=== PATIENT | male | born 1960 | race Caucasian/White ===

== ENCOUNTER → 2019-01-07 | Outpatient (CLI) | payer OTHER | END | disposition home or self-care (01) | LOC: CFH 13:46 | PROVIDERS: ATTEND Nurse Practitioner Primary Care | DX: K40.90 Unilateral inguinal hernia, without obstruction or gangrene, not specified as recurrent (principal) | CPT/HCPCS: 76857 ==

== ENCOUNTER 2020-06-04 15:39 | Emergency (ER) | payer BC, OTHER ==
[~2020-06-04] VITALS: Ht 177.8 cm; Wt 87.0 kg
[2020-06-04 15:54] VITALS: BP 145/78
[2020-06-04] MEDS ORDERED: DIPH,PERTUSS(ACELL),TET VAC/PF 0.5 ML IM-VACC ONE ×2 (16:00→16:27)
[2020-06-04] MEDS ORDERED: LIDOCAINE-MPF 1%, 5ML INFIL ONE (16:00)
--- NOTE | 2020-06-04 16:22 | NUR ---
TEXTILE SCREEN MAKER: PT TO ROOM FROM [facility]
[2020-06-04] MEDS ORDERED: LIDOCAINE-MPF 1%, 5ML ONE (16:26)
[2020-06-04] MEDS ORDERED: BUPIVACAINE 0.25% ONE (16:34)
--- NOTE | 2020-06-04 16:35 | NUR ---
PT STATES HE CUT LT INDEX FINGER W/ TABLE SAW TODAY. PT IS RT HANDED.
[2020-06-04] MEDS ORDERED: OMEP40CA42 PO (16:43)
[2020-06-04] MEDS ORDERED: METO25TA35 PO (16:43)
--- NOTE | 2020-06-04 16:47 | NUR ---
TDAP GIVEN PER EMAR. STRUCTURAL IRONWORKER AT BS FOR WOUND IRRIGATION
[2020-06-04] MEDS ORDERED: BUPIVACAINE 0.25% INFIL ONE (17:00)
--- NOTE | 2020-06-04 17:33 | NUR ---
PROVIDER AWAITING HAND CONSULT
--- NOTE | 2020-06-04 18:09 | NUR ---
[place] VEE AT BS FOR SUTURING.
[2020-06-04] MEDS ORDERED: CEFAZOLIN 1,000 MG IM ONE (18:30)
--- NOTE | 2020-06-04 18:30 | NUR ---
PT REPORT TO ROSELYN BRADFORD RN. PT CARE TRANSFERRED.
[2020-06-04] MEDS ORDERED: LIDOCAINE-MPF 1%, 2ML ONE (18:33)
[2020-06-04] MEDS ORDERED: CEFAZOLIN 1,000 MG ONE (18:34)
[2020-06-04] MEDS ORDERED: NEOSPORIN OINT. PKT 1 PACKET ONE (18:40)
--- NOTE | 2020-06-04 18:47 | NUR ---
TASK RN: PT MEDICATED PER NOV, DRESSING APPLIED TO L FINGER, PT GIVEN DISCHARGE PAPERS
== END 2020-06-04 18:55 | disposition home or self-care (01) ==
LOC: ED 18:17
DX: S62.631B Displaced fracture of distal phalanx of left index finger, initial encounter for open fracture (principal); X58.XXXA Exposure to other specified factors, initial encounter; Y93.89 Activity, other specified; Y92.098 Other place in other non-institutional residence as the place of occurrence of the external cause; Y99.8 Other external cause status
CPT/HCPCS: 12042; 73140; 90471; 90715; 96372; 99284; J0690